=== PATIENT | male | born 1965 | race American Indian/Alaskan Native ===

== ENCOUNTER 2019-09-08 10:03 | Outpatient (CLI) | payer OTHER ==
--- NOTE | 2019-09-08 11:18 | XRay Report ---
LUMBAR SPINE 3 VIEWS INDICATION: BACK PAIN COMPARISON: None. FINDINGS: There is no fracture, subluxation, or other acute radiographic abnormality of the lumbar spine. Disc space heights are maintained. Pedicles appear intact. Signer Name: Michael Palma MD Signed: 09/08/2019 11:13 AM Workstation Name: [id number]
== END 2019-09-08 10:04 | disposition home or self-care (01) ==
LOC: XRAY 10:03
PROVIDERS: ATTEND Internal Medicine
DX: M54.5 Low back pain (principal); F69 Unspecified disorder of adult personality and behavior
CPT/HCPCS: 72100